=== PATIENT | male | born 1975 | race Caucasian/White ===

== ENCOUNTER 2018-12-08 00:25 | Emergency (ER) | payer MEDICAID ==
[~2018-12-08] VITALS: Ht 170.2 cm; Wt 65.2 kg
[2018-12-08 00:29] VITALS: Ht 170.2 cm; Wt 65.2 kg
[2018-12-08] MEDS ORDERED: GUAI-637 PO (03:18)
[2018-12-08] MEDS ORDERED: IBUP-1542 PO (03:19)
[2018-12-08 04:01] VITALS: BP 122/73; PULSE 98; RESP 18
--- NOTE | 2018-12-08 04:46 | ERD ---
ER Documentation Chief Complaint Chief Complaint Pain with cough, bodyaches since yesterday HPI This is a 43-year-old male who presents to the ED with complaints of productive cough, body aches, and headache x1 day. Patient states people in the home in which he lives in were recently diagnosed with the flu. Patient states to have not taken any medication for his symptoms prior to presentation. Is requesting antibiotics for his symptoms at this time. He has a history of anxiety depression for which he takes sertraline. Admits to daily smoking. Denies IV drug use, marijuana or alcohol. ROS All systems reviewed and are negative except as per history of present illness. Medications Home Meds Active Scripts Ibuprofen* (Motrin*) 600 Mg Tab, 600 MG PO Q8 for PAIN, #30 TAB Prov:KAR MICHELE PA-C 12/08/18 Guaifenesin* (Robitussin*) 100 Mg/5 Ml Syrup, 200 MG PO Q6H PRN for COUGH, #120 ML Prov:KAR MICHELE PA-C 12/08/18 Allergies Allergies: Coded Allergies: No Known Allergy (Unverified , 12/08/18) PMhx/Soc Medical and Surgical Hx: pt denies Medical Hx, pt denies Surgical Hx Hx Alcohol Use: No Hx Substance Use: No Hx Tobacco Use: Yes Smoking Status: Current every day smoker FmHx Family History: diabetes; No coronary disease, No other Physical Exam Vitals Vital Signs Date Temp Pulse Resp B/P (MAP) Pulse Ox O2 O2 Flow FiO2 Time Delivery Rate 12/08/18 98.2 98 18 122/73 98 04:01 (89) 12/08/18 98.1 105 24 142/81 98 00:29 (101) Physical Exam Constitutional: Well developed. Well nourished. No acute distress Head/Eyes: Atraumatic. Normocephalic. PERRL. EOMI. no discharge. ENT: Moist mucous membranes. Voice normal. Bilateral TMs visible with no erythema or bulging. External auditory canals are free of discharge, edema, erythema, foreign body. Neck: Supple. No lymphadenopathy Cardiovascular: Tachycardic but regular rhythm. no murmurs, rubs, or gallops. Distal pulses intact Respiratory: No respiratory distress. Normal breath sounds. No wheezes, rales, or rhonchi. Abdominal: Soft. Non-tender. No guarding, rebound, or rigidity. Extremities: No edema, Full ROM Skin: Dry. No rashes. Warm Neurological: Alert and oriented X 3. Normal speech Psychiatric: Normal mood. Anxious affect. Hostile. Procedures/MDM PROCEDURE: Single view chest. CLINICAL INDICATION: Cough, congestion FINDINGS: There is no airspace consolidation or focal infiltrate. No pleural effusion or pneumothorax. Cardiac silhouette and mediastinal contours are unremarkable. Pulmonary vasculature appears normal. Regional bones are grossly unremarkable. IMPRESSION: No evidence of active cardiopulmonary disease. MDM: Patients multiple complaints are likely to be due to viral etiology, especially given recent exposure to the flu. On examination there was no tonsillar edema or exudate, TMs were pink/pearly and non-bulging, lungs were CTAB w/o rhonchi or rales, and patient has no meningismus. Appears to be in NAD, vitals are stable. I counseled patient regarding likely viral etiology, however patient adamantly requesting antibiotics. I explained to patient's while suspicion for bacterial infection is low given concern over productive cough I offered patient a chest x-ray and advised if any evidence of pneumonia would t reat with antibiotics. X-ray imaging of the chest was negative. I have a low suspicion for SBI, including but not limited to pneumonia and sepsis. I have explained to the patient that antibiotics are not effective against viral infections, and can further contribute to antibiotic resistance. Patient advised to practice good hand hygiene to prevent spread of viruses. Patient became very angry after learning he would not be receiving antibiotics for his viral infection today. Patient counseled extensively by both the nurse and myself regarding antibiotic resistance and how antibiotics are not effective for viral infections and may cause other symptoms such as diarrhea, colitis amongst other things. Patient refused to sign discharge paperwork and was escorted out by security as he became angry and hostile towards myself and the nurse for not receiving antibiotics. Patient did receive prescription for supportive treatment however refused. Patient was stable for discharge at time of repeat evaluation and was counseled to return to the ED if symptoms persist or worsen. Departure Diagnosis: Primary Impression: Flu-like symptoms Additional Impression: Cough Condition: Stable Patient Instructions: Uri, Viral, No Abx (Adult) Additional Instructions: You were seen today for flu-like symptoms. A chest x-ray was performed which was negative for pnuemonia. At this time, your symptoms are likely due to a viral infection which does not require antibiotics. Supportive treatment is recommended and you have received a prescription for Robitussin and Motrin. Please return to the ED if symptoms worsen or persist despite treatment. KAR MICHELE PA-C Dec 08, 2018 04:44
== END 2018-12-08 04:05 | disposition home or self-care (01) ==
LOC: FTE 00:25
DX: R05 Cough (principal); F17.210 Nicotine dependence, cigarettes, uncomplicated; R51 Headache
CPT/HCPCS: 71045; Z7502